=== PATIENT | male | born 1940 | race Caucasian/White ===

== ENCOUNTER 2017-04-09 07:33 | Inpatient (IN) | payer OTHER ==
[~2017-04-09] VITALS: Ht 167.6 cm; Wt 102.1 kg
[~2017-04-09 07:33] MED LIST: BACTRIM DS TAB1 EACH PO; COLCHICINE0.6 M3 PO; KEFLEX500 M1 PO; PREDNISONE10 M2 PO
--- NOTE | 2017-04-09 07:55 | NUR ---
TRIAGE: 77/M PRESENTS WITH C/C OF LOWER ABDOMEN PAIN / WHICH COMES AND GOES. PAIN STARTED LAST NIGHT. DENIES NAUSEA AND VOMTING. DENIES ANY NEW URINARY SYMPTOMS OTHER THAN CHONIC OCCASIONAL INCONTINENCE. DENIES CHEST PAIN AT THIS TIME. LUNG SOUNDS ARE CLEAR THROUGH OUT LUNG LOBES. O2 SATURATION 96% RA. EKG DONE, SINUS TACH 102. PT ARRIVES ALERT AND ORIENTED X 3. AFEBRILE.
[2017-04-09] MEDS ORDERED: MELOXICAM7.5 M1 PO (08:21)
--- NOTE | 2017-04-09 08:26 | ED GI/GU/ABDOMINAL COMPLAINT ---
History of Present Illness General Chief Complaint: Abdominal Pain/Flank Pain Stated Complaint: ABD PAIN SINCE LAST PM Source: patient, family, old records Exam Limitations: no limitations Vital Signs & Intake/Output Vital Signs & Intake/Output Vital Signs Date Time Temp Pulse Resp B/P B/P Pulse O2 O2 Flow FiO2 Mean Ox Delivery Rate 04/10 1507 98.9 84 20 110/60 96 Nasal 2.0L Cannula 04/10 0800 Nasal 2.0L Cannula 04/10 0445 97.8 78 22 130/60 97 Nasal 2.0L Cannula 04/10 0046 98.3 85 20 128/72 95 Nasal 2.0L Cannula 04/10 0000 Nasal 2.0L Cannula 04/09 2318 98.1 92 18 132/72 96 ED Intake and Output 04/10 0000 04/09 1200 Intake Total 375 Output Total 1825 300 Balance -1450 -300 Intake, IV 375 Output, 1700 Gastric Drainage Output, Urine 125 300 Patient 225 lb 225 lb Weight Weight Reported by Patient Reported by Patient Measurement Method Allergies Coded Allergies: NO KNOWN ALLERGIES (02/18/16) Reconcile Medications Meloxicam 7.5 MG TABLET 1 TAB PO DAILY PAIN (Reported) Triage Note: TRIAGE: 77/M PRESENTS WITH C/C OF LOWER ABDOMEN PAIN 10/10 WHICH COMES AND GOES. PAIN STARTED LAST NIGHT. DENIES NAUSEA AND VOMTING. DENIES ANY NEW URINARY SYMPTOMS OTHER THAN CHONIC OCCASIONAL INCONTINENCE. DENIES CHEST PAIN AT THIS TIME. LUNG SOUNDS ARE CLEAR THROUGH OUT LUNG LOBES. O2 SATURATION 96% RA. EKG DONE, SINUS TACH 102. PT ARRIVES ALERT AND ORIENTED X 3. AFEBRILE. Triage Nurses Notes Reviewed? yes Onset: Abrupt Duration: hour(s): Timing: recent history Quality/Severity: sharpness, severe Severity Numbers: 8 Location: generalized abdomen Prior Abdominal Problems: none HPI: 77-year-old male presents emergency department complaining of abdominal pain since last night. Patient states that abdominal pain is worse with movement and was so severe last night that he had to lay down and not move. Patient describes abdominal pain as 8/10 currently, described as sharp intermittent stabbing, initially periumbilical with radiation around generalized abdominal area. Patient has had an appetite, no nausea, vomiting, constipation, diarrhea, hematochezia, melena, chest pain, fevers, chills, dyspnea. 2 weeks ago he had many teeth extracted. He daugter states that he has a very high pain tolerance, so she is concerned. LBM yesterday and normal. (BHAVESH SEO PA-C) Past History Travel History Traveled to [place] past 21 day No Medical History Any Pertinent Medical History? 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 No (BHAVESH SEO PA-C) Review of Systems Review of Systems Constitutional: Reports: no symptoms. EENTM: Reports: see HPI. Respiratory: Reports: no symptoms. Cardiovascular: Reports: no symptoms. GI: Reports: see HPI. Genitourinary: Reports: no symptoms. Musculoskeletal: Reports: no symptoms. Skin: Reports: no symptoms. Neurological/Psychological: Reports: no symptoms. Hematologic/Endocrine: Reports: no symptoms. Immunologic/Allergic: Reports: no symptoms. All Other Systems: Reviewed and Negative (BHAVESH SEO PA-C) Physical Exam Physical Exam Gastrointestinal: SEE BELOW Comments: Well-developed well-nourished person in no acute distress HEENT: HEAD is atraumatic, normocephalic Neck: Supple, normal range of motion without pain or tenderness Back: Nontender, Full range of motion Cardiovascular: Regular rate and rhythms no murmurs rubs or gallops, normal JVP Respiratory: . No respiratory distress. Patient speaking in full complete sentences. Breath sounds clear to auscultation bilaterally: NO W/R/R Abdomen: Soft, tenderness throughout all quadrants, nondistended, no appreciable organomegaly. bowel sounds present. No rebound/guarding, No appreciable enlargement of the abdominal aorta, No ascites. Extremity: No edema, full range of motion of extremities Neuro: Alert oriented x3, motor sensory normal, There were no obvious focal neurologic abnormalities. Skin: No appreciable rash on exposed skin, skin is warm and dry. Psych: Mood and affect is normal, memory and judgment is normal. Core Measures ACS in differential dx? Yes Severe Sepsis Present: No Septic Shock Present: No (GABBI JUAREZ,BHAVESH MARCH) Progress Differential Diagnosis: AMI, appendicitis, biliary colic, bowel obstruction, colon cancer, cholecystitis, diverticulitis Plan of Care: Orders Procedure Date/time Status Discontinue Nursing Interventi 04/10 UNK Active Current Medications Sig/Carolyn Start time Last Medication Dose Stop Time Status Admin Heparin Sodium 5,000 UNIT Q8 04/09 2200 AC 04/10 (Porcine) 2148 Hydromorphone HCl 1 MG Q2-3 HRS NEEDED.. 04/09 1445 AC 04/10 (Dilaudid) 1751 Ondansetron HCl 4 MG Q6P PRN 04/09 1445 AC (Zofran) Potassium Chloride 20 MEQ Q8H 04/09 1330 AC 04/10 (KCl 20MEQ in D5W NS 1948 1000ML) Dextrose/Sodium 1,000 ML Chloride (D5-Normal Saline) Laboratory Tests 04/10/17 0745: Anion Gap 8, Estimated GFR > 60, BUN/Creatinine Ratio 25.5 H, Glucose 133 H, CBC w Diff MAN DIFF ORDERED, RBC 2.73 L, MCV 90.9, MCH 29.5, RDW 16.6 H, MPV 6.9 L, Gran % 86.8 H, Lymphocytes % 6.0 L, Monocytes % 7.1, Eosinophils % 0, Basophils % 0.1, Absolute Granulocytes 12.1 H, Segmented Neutrophils 83 H, Band Neutrophils 7 H, Absolute Lymphocytes 0.8 L, Lymphocytes 6 L, Monocytes 4, Absolute Monocytes 1.0 H, Absolute Eosinophils 0, Absolute Basophils 0, Platelet Estimate VERIFIED BY SMEAR, Normocytic RBCs VERIFIED, Normochromic RBCs VERIFIED, PUBS MCHC 32.5 L The patient was discussed with Dr. Delacruz. 10:32 AM - Spoke with radiologist - reports gallstone ileus, gallstone in distal small bowel causing SBO, fisutula between gallbladder and duodenum. General surgery page is pending. Patient's last meal was yesterday evening. Today he has had sips of water with tylenol PO. Spoke with Dr. Barraza, patient likely needs surgery today, Dr. Barraza states PO tylenol okay. 11:58 - Spoke with surgical PA, Mary Siu, she will evaluate patient at bedside Patient reports improved pain following IV Diluadid, he is in no acute distress at this time. Patient going to OR today. (GABBI JUAREZ,BHAVESH MARCH) Diagnostic Imaging: Viewed by Me: CT Scan. Discussed w/RAD: CT Scan. Radiology Impression: PATIENT: MALVIN JAIN PRESENT AGE: 77 PATIENT ACCOUNT NO: [id number] : 39 LOCATION: [facility] ORDERING PHYSICIAN: BHAVESH SEO PA-C SERVICE DATE: 04/09/17 EXAM TYPE: CAT - CT ABD & PELVIS W IV CONTRAST EXAMINATION: CT ABDOMEN PELVIS. CLINICAL INFORMATION: Rule out appendicitis, obstruction. Abdominal pain. COMPARISON: None available at time of dictation. TECHNIQUE: Computer tomography of the abdomen and pelvis was performed following the intravenous administration of 95 mL of Optiray 320. FINDINGS: The lung bases are clear. The heart appears normal in size. There are dense coronary artery calcifications. There is no pericardial effusion. There is evidence of small bowel obstruction. The stomach is markedly dilated as is the majority of the small bowel. There is a 2.9 x 2.9 cm peripherally calcified structure within the distal small bowel seen best on axial image #71/96 and coronal image #64/103. This appears to represent the point of the small bowel obstruction. There is a fistulous connection between a markedly abnormal gallbladder identified best on image #52/103 and the second portion of the duodenum. The gallbladder wall is markedly thickened and there is pericholecystic inflammatory change and gas. This constellation of findings is consistent with a gallstone ileus. The liver is normal in size. There is no intrahepatic biliary ductal dilation. The pancreas is somewhat atrophic. There is no focal pancreatic lesion identified. No pancreatic ductal dilation. The spleen is normal in size. The adrenal glands are grossly normal. Kidneys are somewhat atrophic bilaterally. There are multiple cortical defects within both kidneys. There are several low-attenuation lesions scattered throughout the left kidney, the largest measuring 1.9 cm. This likely represents a cyst. The subcentimeter lesions are too small for definitive characterization. No hydronephrosis. Urinary bladder is grossly normal. The prostate gland is normal in size. There are atherosclerotic calcifications throughout the visualized aorta. No aortic aneurysm. There is a left hip prosthesis. There are severe degenerative changes throughout the entire lumbar spine characterized by intervertebral disc space narrowing, endplate sclerosis, osteophytosis and vacuum disc phenomenon. There is severe facet arthropathy throughout the lower lumbar spine. The left psoas muscle is markedly atrophic. IMPRESSION: Findings are consistent with gallstone ileus. There is small bowel obstruction resulting from impaction of a large gallstone within the distal small bowel. 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 This critical result was discussed with JOANNE Flores at 10:35 AM on 04/09/2017 and it was ascertained that the content and urgency of the report was understood at the time of direct communication. DICTATED BY: TUCKER MCKENNA MD DATE/TIME DICTATED:04/09/17953 COUNTERSINKER BALANCE SCREW HOLE:JULIANNE DATE/TIME TRANSCRIBED:04/09/17953 CONFIDENTIAL, DO NOT COPY WITHOUT APPROPRIATE AUTHORIZATION. <Electronically signed in Other Vendor System> SIGNED BY: TUCKER MCKENNA MD 04/09/17 1039 Initial ED EKG: sinus tachycardia @100bpm, no ST segment depression or elevation Prior EKG: changed (02/18/16 sinus rhythm, 1AV block) (GABBI JUAREZ,BHAVESH MARCH) Departure Departure Disposition: STILL A PATIENT Condition: Stable Clinical Impression Primary Impression: Gallstone ileus Secondary Impressions: Abdominal pain, Leukocytosis, Small bowel obstruction Referrals: PATIENT HAS NO PRIMARY CARE DR (PCP/Family) Departure Forms: Customer Survey General Discharge Information Admission Note Spoke With: JOSE JONES,BOYD Martinez Documentation of Exam: Documentation of any treatments & extenuating circumstances including Concerns Regarding Discharge (functional status, medication knowledge or non-compliance, living conditions, etc.) that warrant an admission rather than observation: [ Patient with gallstone ileus and SBO, requiring surgery today, post operative monitoring, repeat labs, IV pain control, premature discharge would be medically harmful] (GABBI JUAREZ,BHAVESH MARCH) PA/BUSINESS WRITER Co-Sign Statement Statement: ED Attending supervision documentation- x I saw and evaluated the patient. I have also reviewed all the pertinent lab results and diagnostic results. I agree with the findings and the plan of care as documented in the PA's/BUSINESS WRITER's documentation. [] I have reviewed the ED Record and agree with the PA's/BUSINESS WRITER's documentation. [] Additions or exceptions (if any) to the PAs/BUSINESS WRITER's note and plan are summarized below: [] (KAY JONES,CHANDRA) harmful]
--- NOTE | 2017-04-09 08:36 | NUR ---
IV #20G INSERTED ON LEFT AC. LABS DRAWN AND SENT.
[2017-04-09 08:40] LABS: ABSOLUTE BASOPHIL COUNT 0 /CUMM (0.0-0.2); ABSOLUTE EOSINOPHIL COUNT 0 /CUMM (0.0-0.7); ABSOLUTE GRANULOCYTE CT 17.2 /CUMM (1.4-6.5); ABSOLUTE LYMPH COUNT 0.5 /CUMM (1.2-3.4); ABSOLUTE MONOCYTE COUNT 0.7 /CUMM (0.10-0.60); BASOPHIL % 0.1 % (0.0-2.0); EOSINOPHIL % 0 % (0-5); GRANULOCYTE % 93.5 % (42.2-75.2); MEAN CORPUSCULAR HGB 29.6 PG (27.0-31.0); MEAN CORPUSCULAR HGB CONC 32.5 G/DL (33.0-37.0); MEAN CORPUSCULAR VOLUME 91.1 FL (80.0-94.0); MEAN PLATELET VOLUME 6.1 FL (7.4-10.4); PLATELET COUNT 438 /CUMM (130-400); RBC DISTRIBUTION WIDTH 16.4 % (11.5-14.5); WHITE BLOOD CELL COUNT 18.4 /CUMM (4.8-10.8)
--- NOTE | 2017-04-09 09:12 | NUR ---
PT TAKEN TO CT SCAN VIA STRETCHER.
--- NOTE | 2017-04-09 09:39 | NUR ---
PT BACK FROM CT SCAN. TYLENOL PO GIVEN ORDERED.
--- NOTE | 2017-04-09 10:34 | NUR ---
PT UNABLE TO VOID FOR SPECIMEN. ST. DONE ORDERED. 300ML OF CONCENTRATED URINE OUTPUT. SPECIMENT OBTAINED AND SENT. PT'S HOME BRIEF WET FROM INCONTINENCY. PERICARE PROVIDED. REPOSITIONED FOR COMFORT.
--- NOTE | 2017-04-09 10:37 | NUR ---
PA IN ROOM UPDATING TEST RESULTS.
--- NOTE | 2017-04-09 10:39 | CT SCAN REPORT ---
EXAMINATION: CT ABDOMEN PELVIS. CLINICAL INFORMATION: Rule out appendicitis, obstruction. Abdominal pain. COMPARISON: None available at time of dictation. TECHNIQUE: Computer tomography of the abdomen and pelvis was performed following the intravenous administration of 95 mL of Optiray 320. FINDINGS: The lung bases are clear. The heart appears normal in size. There are dense coronary artery calcifications. There is no pericardial effusion. There is evidence of small bowel obstruction. The stomach is markedly dilated as is the majority of the small bowel. There is a 2.9 x 2.9 cm peripherally calcified structure within the distal small bowel seen best on axial image #71/96 and coronal image #64/103. This appears to represent the point of the small bowel obstruction. There is a fistulous connection between a markedly abnormal gallbladder identified best on image #52/103 and the second portion of the duodenum. The gallbladder wall is markedly thickened and there is pericholecystic inflammatory change and gas. This constellation of findings is consistent with a gallstone ileus. The liver is normal in size. There is no intrahepatic biliary ductal dilation. The pancreas is somewhat atrophic. There is no focal pancreatic lesion identified. No pancreatic ductal dilation. The spleen is normal in size. The adrenal glands are grossly normal. Kidneys are somewhat atrophic bilaterally. There are multiple cortical defects within both kidneys. There are several low-attenuation lesions scattered throughout the left kidney, the largest measuring 1.9 cm. This likely represents a cyst. The subcentimeter lesions are too small for definitive characterization. No hydronephrosis. Urinary bladder is grossly normal. The prostate gland is normal in size. There are atherosclerotic calcifications throughout the visualized aorta. No aortic aneurysm. There is a left hip prosthesis. There are severe degenerative changes throughout the entire lumbar spine characterized by intervertebral disc space narrowing, endplate sclerosis, osteophytosis and vacuum disc phenomenon. There is severe facet arthropathy throughout the lower lumbar spine. The left psoas muscle is markedly atrophic. IMPRESSION: Findings are consistent with gallstone ileus. There is small bowel obstruction resulting from impaction of a large gallstone within the distal small bowel. 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 This critical result was discussed with JOANNE Flores at 10:35 AM on 04/09/2017 and it was ascertained that the content and urgency of the report was understood at the time of direct communication.
--- NOTE | 2017-04-09 10:58 | NUR ---
PT C/O ABDOMEN PAIN 04/24. MEDICATED WITH DILAUDID IVP ORDERED. VITAL SIGNS STABLE PRIOR TO MED ADMINISTRATION.
--- NOTE | 2017-04-09 11:50 | NUR ---
NORMAL SALINE BOLUS INFUSING PER ORDER AT THIS TIME
--- NOTE | 2017-04-09 12:04 | NUR ---
DR. GARCIA IN ROOM SPEAKING TO THE PT.
--- NOTE | 2017-04-09 12:19 | NUR ---
SURGICAL PA AT BEDSIDE TO PLACE NG TUBE AT THIS TIME
--- NOTE | 2017-04-09 12:38 | NUR ---
OUTPUT APPROX 700CC BROWN LIQUID FROM NG TUBE, AWAIITNG XRAY FOR PLACEMENT CONFIRMATION AND THEN PER SURGICAL PA PT TO BE HOOKED UP TO LOW CONTINUOUS SUCTION.
--- NOTE | 2017-04-09 12:42 | NUR ---
X RAY AT BEDSIDE.
--- NOTE | 2017-04-09 13:00 | RADIOLOGY REPORT ---
EXAMINATION: XR PORTABLE CHEST CLINICAL INFORMATION: Nausea and vomiting. NG tube placement. COMPARISON: 04/15/2011 TECHNIQUE: Portable frontal view of the chest was obtained. FINDINGS: The enteric tube extends into the stomach. The side port is likely in the region of the gastroesophageal junction. The right costophrenic angle is not fully included on this study. Lung volumes are low. No consolidation, edema, or effusion. No pneumothorax. The cardiomediastinal silhouette is unchanged, with a tortuous aorta. IMPRESSION: Enteric tube extends into the stomach with the side-port likely in the region of the gastroesophageal junction. Consider advancement.
--- NOTE | 2017-04-09 13:02 | NUR ---
EMPTIED 1000ML DARK BROWN NG TUBE DRAINAGE. PT REPORTS "PAIN A LOT BETTER THAN BEFORE, I CAN WALK NOW." VITAL SIGNS STABLE.
--- NOTE | 2017-04-09 13:09 | NUR ---
SURGICAL PA UPDATED X RAY RESULTS. PA TO COME DOWN TO ADVANCE THE NG TUBE.
--- NOTE | 2017-04-09 13:22 | NUR ---
SURGICAL PA IN ROOM.
--- NOTE | 2017-04-09 14:25 | Admission Core Measures ---
Admission Lab Results I reviewed the following labs: Laboratory Tests 04/09 1030 Urines Urinalysis MOD H Urine Color (YEL,AMB,STR) YEL Urine Clarity (CLEAR) CLDY H Urine pH (5.0 - 8.0) 6.0 Ur Specific [place] (1.001 - 1.035) 1.020 Urine Protein (NEG,<30 MG/DL) 30 H Urine Ketones (NEG) TRACE H Urine Nitrite (NEG) NEG Urine Bilirubin (NEG) NEG@ICTO Urine Urobilinogen (0.1 - 1.0 EU/dl) 1.0 Ur Leukocyte Esterase (NEG) NEG Ur Microscopic SEDIMENT EXAMINED Urine RBC (0 - 5 /HPF) 1-3 Urine WBC (0 - 2 /HPF) 3-5 H Ur Epithelial Cells (NONE,FEW) RARE Urine Bacteria (NEG/NONE) RARE H Hyaline Casts (0/LPF) 5-10 H Granular Casts (NONE /LPF) RARE H Urine Mucus (FEW,NONE) MOD H Urine Hemoglobin (NEG) NEG Urine Glucose (N MG/DL) NEG 04/09 0830 Chemistry Sodium (137 - 145 mmol/L) 140 Potassium (3.5 - 5.1 mmol/L) 4.6 Chloride (98 - 107 mmol/L) 99 Carbon Dioxide (22 - 30 mmol/L) 27 Anion Gap (5 - 16) 13 BUN (9 - 20 mg/dL) 26 H Creatinine (0.7 - 1.2 mg/dL) 1.2 Estimated GFR (>60 ml/min) 59 L BUN/Creatinine Ratio (7 - 25 %) 21.7 Glucose (65 - 99 mg/dL) 206 H Calcium (8.4 - 10.2 mg/dL) 10.5 H Total Bilirubin (0.2 - 1.3 mg/dL) 0.6 AST (17 - 59 U/L) 17 ALT (21 - 72 U/L) 23 Alkaline Phosphatase (< 127 U/L) 74 Troponin I (<0.11 ng/ml) < 0.01 Total Protein (6.3 - 8.2 g/dL) 6.9 Albumin (3.5 - 5.0 g/dL) 4.0 Globulin (1.9 - 4.2 gm/dL) 2.9 Albumin/Globulin Ratio (1.1 - 2.2 %) 1.4 Lipase (23 - 300 U/L) 66 Hematology CBC w Diff MAN DIFF ORDERED WBC (4.8 - 10.8 /CUMM) 18.4 H RBC (4.70 - 6.10 /CUMM) 3.30 L Hgb (14.0 - 18.0 G/DL) 9.8 L Hct (42 - 52 %) 30.0 L MCV (80.0 - 94.0 FL) 91.1 MCH (27.0 - 31.0 PG) 29.6 RDW (11.5 - 14.5 %) 16.4 H Plt Count (130 - 400 /CUMM) 438 H MPV (7.4 - 10.4 FL) 6.1 L Gran % (42.2 - 75.2 %) 93.5 H Lymphocytes % (20.5 - 51.1 %) 2.5 L Monocytes % (1.7 - 9.3 %) 3.9 Eosinophils % (0 - 5 %) 0 Basophils % (0.0 - 2.0 %) 0.1 Absolute Granulocytes (1.4 - 6.5 /CUMM) 17.2 H Segmented Neutrophils (42.2 - 75.2 %) 88 H Band Neutrophils (0.0 - 5.0 %) 6 H Absolute Lymphocytes (1.2 - 3.4 /CUMM) 0.5 L Lymphocytes (20.5 - 51.1 %) 1 L Monocytes (1.7 - 9.3 %) 5 Absolute Monocytes (0.10 - 0.60 /CUMM) 0.7 H Absolute Eosinophils (0.0 - 0.7 /CUMM) 0 Absolute Basophils (0.0 - 0.2 /CUMM) 0 Platelet Estimate (ADEQUATE) VERIFIED BY SMEAR Normocytic RBCs VERIFIED Normochromic RBCs VERIFIED PUBS MCHC (33.0 - 37.0 G/DL) 32.5 L Admission Meds I reviewed the following Meds: Current Medications Sig/Carolyn Start time Last Medication Dose Stop Time Status Admin Potassium Chloride 20 MEQ Q8H 04/09 1330 AC 04/09 (KCl 20MEQ in D5W NS 1416 1000ML) Dextrose/Sodium 1,000 ML Chloride (D5-Normal Saline) Acute Coronary Syndrome Inclusion Criteria ACS Diagnosis No Inpatient Core Measures LDL Reminder: If No, please order W/I first 24hr of stay Congestive Heart Failure Inclusion Criteria CHF Diagnosis No Cerebrovascular accident Inclusion Criteria CVA/TIA Diagnosis No Inpatient Core Measures Bedside Swallow Eval Reminder: If BSE failed, place ST order Antithrombotic Reminder: Order Antithrombotic Medication by end of day 2 Antithrombotic Reminder: Document Reason Antithrombotic Not ordered by end of day 2 AFIB/Flutter Reminder: If Present, add to problem list AFIB/Flutter Reminder: Order Anticoag Medication for pts with AFIB/Flutter Atherosclerosis Reminder: If Present, add to problem list LDL Reminder: If No, please order W/I first 24hr of stay PT Order Reminder: If No, please order Venous thromboembolism Inpatient Core Measures VTE Risk Factors: Surgery No [facility] VTE prophylaxis d/t No contraindications No VTE Pharm Prophylaxis d/t No contraindications Inclusion Criteria - Per Current guidelines, there needs to be overlap - treatment for the first 5 days of Warfarin therapy. - Parenteral Anticoagulation (IV or SC) needs to be - given along with Warfarin therapy. VTE Diagnosis No VTE Type NONE VTE Confirmed by (Test) NONE Problem List As ranked by this Provider includes Assessment & Plan 1. Gallstone ileus 2. Small bowel obstruction HOME MEDS Home Med List Meloxicam 7.5 MG TABLET 1 TAB PO DAILY PAIN (Reported)
--- NOTE | 2017-04-09 14:28 | NUR ---
[facility] CATH DONE PER SURGICAL PA'S VERBAL ORDER. INSERTED 18 FFR. 100ML URINE OUT PUT. PT TOLERATED WELL WITHOUT ANY COMPLAINTS. IV 20 MEQ KCL INFUSING AT 150/HR ORDERED.
--- NOTE | 2017-04-09 14:41 | History & Physical Pre-Op ---
See Addendum General Information and HPI History of Present Illness: 77M presents to ED complaining of abdominal pain that began last night around 5 PM. He describes the pain as consistent very sharp and intense generalized abdominal pain not localized to either side. She denied nausea or vomiting with this pain. He's never had pain like this in the past. She has no history of abdominal surgeries or gastrointestinal disorders. He denies fevers and chills and has no chest pain or shortness of breath. At the time of this interview he is feeling better though has had some pain medication. 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 Relation not specified for: FHx: colon cancer Psychosocial History Where Do You Live? Home (lives alone) Who Do You Live With? self Services at Home None Smoking Status: Never Smoked ETOH Use: denies use Illicit Drug Use: denies illicit drug use Employment History Employment: Retired Review of Systems Review of Systems: see HPI Exam & Diagnostic Data Last 24 Hrs of Vital Signs/I&O Vital Signs Date Time Temp Pulse Resp B/P B/P Pulse O2 O2 Flow FiO2 Mean Ox Delivery Rate 04/09 1417 97.6 105 18 117/68 995 Room Air 04/09 1303 97.7 101 18 117/68 100 Room Air 04/09 1057 97.7 101 18 140/74 94 Room Air 04/09 0748 98.7 109 18 132/66 96 Room Air Intake & Output 04/09 1600 04/09 0800 04/09 0000 Intake Total Output Total 2000 Balance -2000 Output, 1700 Gastric Drainage Output, Urine 300 Patient 225 lb Weight Weight Reported by Patient Measurement Method Physical Exam: GEN: NAD CARD: S1S2 RRR PULM: CTAB ABD: soft, mildly tender to palpation right side, NG tube in place with feculent brown material in container EXT: calves soft nt Last 24 Hrs of Labs/Rudolph: Laboratory Tests 04/09/17 1030: Urinalysis MOD H, Urine Color YEL, Urine Clarity CLDY H, Urine pH 6.0, Ur Specific Antelope 1.020, Urine Protein 30 H, Urine Ketones TRACE H, Urine Nitrite NEG, Urine Bilirubin NEG@ICTO, Urine Urobilinogen 1.0, Ur Leukocyte Esterase NEG, Ur Microscopic SEDIMENT EXAMINED, Urine RBC 1-3, Urine WBC 3-5 H, Ur Epithelial Cells RARE, Urine Bacteria RARE H, Hyaline Casts 5-10 H, Granular Casts RARE H, Urine Mucus MOD H, Urine Hemoglobin NEG, Urine Glucose NEG 04/09/17 0830: Anion Gap 13, Estimated GFR 59 L, BUN/Creatinine Ratio 21.7, Glucose 206 H, Calcium 10.5 H, Total Bilirubin 0.6, AST 17, ALT 23, Alkaline Phosphatase 74, Troponin I < 0.01, Total Protein 6.9, Albumin 4.0, Globulin 2.9, Albumin/ Globulin Ratio 1.4, Lipase 66, CBC w Diff MAN DIFF ORDERED, RBC 3.30 L, MCV 91.1, MCH 29.6, RDW 16.4 H, MPV 6.1 L, Gran % 93.5 H, Lymphocytes % 2.5 L, Monocytes % 3.9, Eosinophils % 0, Basophils % 0.1, Absolute Granulocytes 17.2 H , Segmented Neutrophils 88 H, Band Neutrophils 6 H, Absolute Lymphocytes 0.5 L, Lymphocytes 1 L, Monocytes 5, Absolute Monocytes 0.7 H, Absolute Eosinophils 0, Absolute Basophils 0, Platelet Estimate VERIFIED BY SMEAR, Normocytic RBCs VERIFIED, Normochromic RBCs VERIFIED, PUBS MCHC 32.5 L Diagnostic Data Other Results CT a/p: Findings are consistent with gallstone ileus. There is small bowel obstruction resulting from impaction of a large gallstone within the distal small bowel. 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 Assessment/Plan Assessment/Plan: A: 77M with SBO secondary to gallstone ileus, with significant leukocytosis of 19K and greater than 2 L of feculent material out via NG tube initial insertion, mildly tachycardic, elevated BUN/creatinine due to dehydration. P: -Case discussed with Dr. Barraza. Patient to be brought to the OR today. NPO. IVF. IV meds. NGT to lcws. strict I&Os. palomino catheter. DVT ppx. preop abx. As Ranked By This Provider Problem List: 1. Gallstone ileus 2. Small bowel obstruction
--- NOTE | 2017-04-09 15:22 | NUR ---
ROOM 219 IS BED ASSIGNMENT
--- NOTE | 2017-04-09 17:48 | Operative Report ---
Operative/Inv Procedure Report Surgery Date: 04/09/17 Name of Procedure: Removal of foreign body small bowel Pre-Operative Diagnosis: Gallstone ileus Post-Operative Diagnosis: Same Estimated Blood Loss: scant Surgeon/Detective [employer] Section: JOSE JONES,BOYD Martinez/Kimberly Lane APRN Anesthesia: general endotracheal tube Specimens: 3 cm gallstone Operative Indication: See preoperative H&P Operative/Procedure Note Note: After consent he is brought to the operating room and laid supine. Gen. anesthesia was obtained and his abdomen was prepped and draped. An infraumbilical midline incision was made sharply. Came down to the subcutaneous tissues tissues with cautery and incised the fascia with cautery. The peritoneum was entered sharply. The wound was fully mobilized. We ran the small bowel distally through the small laparotomy incision. There were's copious ileum which was completely decompressed. There were massively dilated proximal small bowel loops. On the preop CT he had the stone in the pelvis and a small bowel loop so I inserted my hand and was able to palpate it and bring it up into the wound. This was the obvious obstructing source. Blue towels were placed around the small bowel and a bowel clamp was placed proximally to avoid excessive enteric spillage. A longitudinal incision was made through the bowel overlying the stone. His was performed with cautery. The stone was extracted and passed off the field. I closed the enterotomy with interrupted 3-0 silk sutures and a transverse stricturoplasty fashion. This was done with interrupted Lembert sutures. The bowel was irrigated with saline and then replaced in the peritoneal cavity. Prior to doing so we milked some succus through the site. There is no obstruction. There is no leakage through the suture sites. The fascia was closed with running 0 Maxon suture. Skin was closed with sahw. Sterile dressing was applied. Sponge and needle counts are correct
[2017-04-09 19:05] VITALS: BP 132/80
--- NOTE | 2017-04-09 19:05 | NUR ---
ADMISSION NOTE: PT ARRIVED TO FLOOR IN STRETCHER WITH DISTRIBUTION, DAUGHTER AT BEDSIDE, A/OX3, 2L NC, NG TUBE INPLACE DRAINING SCANT AMT OF BROWNISH LIQUID, IV INTACT, IVF RUNNING PER MD ORDER, ABD DRESSING TO MID ABD WITH SCANT BLOODY DRAINAGE APPARNT, 0/10 PAIN REPORTED BY PT, ORIENTED TO ROOM, REPORT GIVEN TO NEXT NURSE.
--- NOTE | 2017-04-09 20:16 | PN- General Surgery ---
Subjective Subjective: POSTOP CHECK SLEEPY. PAIN CONTROLLED. NO FLATUS/BM/OOB. NGT CLOGGED- UNABLE TO FLUSH Objective Vital Signs and I&Os Vital Signs Date Time Temp Pulse Resp B/P B/P Pulse O2 O2 Flow FiO2 Mean Ox Delivery Rate 04/09 1905 97.6 94 18 132/80 91 Room Air 04/09 1417 97.6 105 18 117/68 995 Room Air 04/09 1303 97.7 101 18 117/68 100 Room Air 04/09 1057 97.7 101 18 140/74 94 Room Air 04/09 0748 98.7 109 18 132/66 96 Room Air Intake & Output 04/09 1600 04/09 0800 04/09 0000 04/08 1600 04/08 0800 04/08 0000 Intake Total Output Total 1999 Balance -2000 Output, 1700 Gastric Drainage Output, Urine 300 Patient 225 lb Weight Weight Reported by Patient Measurement Method Physical Exam: GEN: NAD CARD: S1S2 RRR PULM: CTAB ABD: softly distended, slightly ttp, incision w CDI dressing, +bs with ngt clamped EXT: calves soft nt, ALPS on bl NGT: clogged. unable to flush. gastric contents going through blue port- 150 out. on low wall suction Assessment/Plan Assessment/Plan A: 77m pod#0 sp exlap/small bowel gallstone removal, no bowel fxn, stable postoperatively. P: - DVT ppx - GI ppx -palomino for postop period - npo, ngt, ivf. NGT flushes by rn qshift - prn pain meds - OOB, ambulate - am labs, check serum glucose- elevated on admission labs, no hx DM - will dw attending Core Measures/Miscellaneous Venous Thromboembolism VTE Risk Factors: Surgery VTE Contraindications: No Contraindications VTE Diagnosis: No VTE Type: NONE VTE Confirmed by (Test): NONE Beta Jayne Is Beta Jayne a Home Med? No Antibiotics Is Patient on Antibiotics? No
[2017-04-09 21:11] VITALS: BP 128/68
[2017-04-09 23:18] VITALS: BP 132/72
[2017-04-10 00:46] VITALS: BP 128/72
[2017-04-10 04:45] VITALS: BP 130/60
--- NOTE | 2017-04-10 06:48 | PN- Student ---
Subjective Subjective: POST-OP DAY #1 Pt is a 77 y/o male who is POD #1 of an exploratory laparotomy to remove a gallstone ileus causing a small bowel obstruction on 04/09, who is doing well with no complaints of pain. Pt states that he feels much better than yesterday. He denies any N/V or dizziness. -ambulation. -flatus. ROS: Neuro: Denies any headaches or changes in vision. Respiratory: Denies any SOB or difficulty breathing. Cardiac: Denies any chest pain or palpitations. GI: Denies any pain around incision site, cramping, or bloating. : Denies any burning, itching, or iritation with voiding through palomino catheter. MSK: Denies any joint pain or back pain. Objective Objective: Vital Signs Date Time Temp Pulse Resp B/P B/P Pulse O2 O2 Flow FiO2 Mean Ox Delivery Rate 04/10 0445 97.8 78 22 130/60 97 Nasal 2.0L Cannula 04/10 0046 98.3 85 20 128/72 95 Nasal 2.0L Cannula 04/09 2318 98.1 92 18 132/72 96 04/09 2111 97.7 88 18 128/68 97 04/09 1905 96 Nasal 2.0L Cannula 04/09 1905 97.6 94 18 132/80 91 Room Air 04/09 1417 97.6 105 18 117/68 995 Room Air 04/09 1303 97.7 101 18 117/68 100 Room Air 04/09 1057 97.7 101 18 140/74 94 Room Air 04/09 0748 98.7 109 18 132/66 96 Room Air General: Alert & oriented x3. Appropriate mood & affect. Respiratory: CABL. No wheezes, rhales, or ronchi. No accessory muscle use. Cardiac: S1S2. Normal rate, regular rhythm. No murmurs, rubs, or gallops. No signs of edema. GI: Abdomen is soft, nontender, nondistended. + BS in all 4 quadrants. Bandage has some minor sanguinous staining around incision, but is dry and intact. No erythema surrounding. MSK: Calves are soft, nontender. Stocking compression devices applied. Assessment/Plan Assessment: This is a 77 y/o male who is POD #1 of an exploratory laparotomy to relieve a small bowel obstruction caused by a gallstone ileus, who is doing well with no complaints of pain, and significant relief from previous day. Plan: - Discuss possible removal of NG tube. - Remove palomino catheter. - Heparin SC & SCD's DVT prophylaxis. - Advance to clears diet as tolerated. - Promote out of bed ambulation. - Will discuss w/ Dr. Barraza.
--- NOTE | 2017-04-10 07:50 | PN- General Surgery ---
Subjective Subjective: PT. REPORTS NO PAIN. DENIED NAUSEA OR EMESIS. NOT PASSING FLATUS Objective Vital Signs and I&Os Vital Signs Date Time Temp Pulse Resp B/P B/P Pulse O2 O2 Flow FiO2 Mean Ox Delivery Rate 04/10 0445 97.8 78 22 130/60 97 Nasal 2.0L Cannula 04/10 0046 98.3 85 20 128/72 95 Nasal 2.0L Cannula 04/09 2318 98.1 92 18 132/72 96 04/09 2111 97.7 88 18 128/68 97 04/09 1905 96 Nasal 2.0L Cannula 04/09 190 97.6 94 18 132/80 91 Room Air 04/09 1417 97.6 105 18 117/68 995 Room Air 04/09 1303 97.7 101 18 117/68 100 Room Air 04/09 1057 97.7 101 18 140/74 94 Room Air 04/09 0748 98.7 109 18 132/66 96 Room Air Intake & Output 04/10 0800 04/10 0000 04/09 1600 04/09 0800 04/09 0000 04/08 1600 Intake Total Output Total 659 300 2705 Balance -150 -125 -2000 Output, 1700 Gastric Drainage Output, Urine 150 125 300 Patient 225 lb 225 lb Weight Weight Reported by Patient Reported by Patient Measurement Method ALERT. ORIENTED , APPROPRIATE COR REGULAR lUNGS ESSENTIALLY CLEAR ABDOMEN , SOFR, ESSENTIALLY NOT DISTENDED, NOT TENDER, INCISION IS CLEAN NGT APPEARS CLOGGED UPON ATTEMPTS OF FLUSHING VIA LARGER PORT, HOWEVER OURPUT IN CANNISTER RECORDED 250 CC OF THICK OUTPUT OVER NIGHT VIA BLUE PORT MCKEON TO GRAVITY WITH MARGINAL OUTPUT Assessment/Plan Assessment/Plan GALLSTONE ILEU, S/P STONE REMOVAL POST OP DAY 1 STABLE HEMODYNAMICS URINARY OUTPUT BORDERLINE, MOINITOE. LIKELY D/C MCKEON, KEEP IVF ONCE BETTER OUTPUT. ABDOMINAL EXAM IS BENIGN EXPECTED. NGT SEEMS TO BE CLOGGED DESPITE FLUSHES.HE IS NOT PASSING GAS BUT HE IS NOT DISTENDED. WOULD FAVOR REMOVAL OF NGT AND REPLACE IF BECOMES DISTENDED. CONSIDER CLEAR DIET TODAY. LABS PENDING, FOLLOW REAULTS. PT. IS COMFORTABLE, DID NOT REQUIRE NARCOTICS OVER NIGHT. WILL REVIEW ABOVE WITH SURGEON Core Measures/Miscellaneous Venous Thromboembolism VTE Risk Factors: Surgery VTE Contraindications: No Contraindications VTE Diagnosis: No VTE Type: NONE VTE Confirmed by (Test): NONE Beta Jayne Is Beta Jayne a Home Med? No Antibiotics Is Patient on Antibiotics? No
[2017-04-10 09:29] LABS: ABSOLUTE BASOPHIL COUNT 0 /CUMM (0.0-0.2); ABSOLUTE EOSINOPHIL COUNT 0 /CUMM (0.0-0.7); ABSOLUTE GRANULOCYTE CT 12.1 /CUMM (1.4-6.5); ABSOLUTE LYMPH COUNT 0.8 /CUMM (1.2-3.4); BASOPHIL % 0.1 % (0.0-2.0); EOSINOPHIL % 0 % (0-5); MEAN CORPUSCULAR HGB 29.5 PG (27.0-31.0); MEAN CORPUSCULAR HGB CONC 32.5 G/DL (33.0-37.0); MEAN CORPUSCULAR VOLUME 90.9 FL (80.0-94.0); MEAN PLATELET VOLUME 6.9 FL (7.4-10.4); PLATELET COUNT 339 /CUMM (130-400); RBC DISTRIBUTION WIDTH 16.6 % (11.5-14.5); RED BLOOD CELL CT 2.73 /CUMM (4.70-6.10)
[2017-04-10 15:07] VITALS: BP 110/60
[2017-04-10 22:36] VITALS: BP 140/82
--- NOTE | 2017-04-10 23:16 | NUR ---
ALERT AND ORIENTED X 3. ON 2L O2 VIA NC. DENIES SHORTNESS OF BREATH VITAL SIGNS STABLE. DENIES CHEST PAIN. + PULSES. DENIES NUMBNESS/TINGLING DSG TO ABD IS C/D/I. ASSIST X 1. HYPOACTIVE BOWEL SOUNDS NO DISCOMFORT/DISTRESS AT THIS TIME. PATIENT RESTING SAFETY MAINTAINED
[2017-04-11 06:50] VITALS: BP 128/82
--- NOTE | 2017-04-11 07:25 | PN- Student ---
See Addendum NOE KILPATRICK 04/11/17 0713: Subjective Subjective: Pt is a 77 y/o male who is POD #2 of an exploratory laparotomy & enterotomy of gallstone ileus on 04/09 who complains of mild pain of a 2-3/10 around his umbilical region and around his incision site with movement. He states that it is intermittent, and is exacerbated with movement & pressure. Voiding w/o difficulty. +flatus. +ambulation. Remains NPO. Denies any N/V/D. ROS Neuro: Denies any headaches. Respiratory: Denies any SOB or difficulty breathing. Cardiac: Denies any CP or palpitations. GI: Complains of intermittent pain around incision site that worsens with movement. : Denies any pain, burning, or difficulty voiding in urinal. Objective Objective: General: Alert & oriented x3. Appropriate mood & affect. Respiratory: CABL. No wheezes, rhales, or ronchi. No accessory muscle use. Cardiac: S1S2. Regular rate, normal rhythm. No murmurs, rubs, or gallops. No signs of edema. GI: Abdomen is soft. Mildly tender in umbilical region & around incision site. Nondistended. Bandage over incision is c/d/i w/ minimal sanguinous staining over center of bandage from incision. No surrounding erythema. + BS all 4 quadrants. MSK: Calf soft, nontender BL. Plantarflexion & dorsiflexion strength 5/5 BL. Stocking compression devices applied. Assessment/Plan Assessment: This is a 77 y/o male who is POD #2 of an exploratory laparotomy w/ enterotomy of gallstone ileus on 04/09 who is doing well with some mild complaints of pain in umbilical region that is being managed. Plan: - Advance diet to clears as tolerated. - Continue pain management regimen. - Promote out of bed ambulation to assist in bowel movement. - Heparin SC & SCD's DVT prophylaxis. - Promote use of incentive spirometer. - Will discuss w/ attending. APRIL HAHN 04/11/17 1198: Assessment/Plan Plan: agree with above PA-S note try clears today PT eval (ambulates with rolling walker at baseline) f/u labs will d/w
[2017-04-11 08:03] LABS: HEMATOCRIT 24.8 % (42-52)
[2017-04-11 08:04] LABS: GRANULOCYTE % 86.8 % (42.2-75.2)
[2017-04-11 08:56] LABS: ABSOLUTE BASOPHIL COUNT 0 /CUMM (0.0-0.2); ABSOLUTE EOSINOPHIL COUNT 0.1 /CUMM (0.0-0.7); ABSOLUTE GRANULOCYTE CT 6.6 /CUMM (1.4-6.5); ABSOLUTE LYMPH COUNT 0.8 /CUMM (1.2-3.4); ABSOLUTE MONOCYTE COUNT 0.7 /CUMM (0.10-0.60); BASOPHIL % 0.2 % (0.0-2.0); GRANULOCYTE % 80.7 % (42.2-75.2); HEMATOCRIT 24.1 % (42-52); MEAN CORPUSCULAR HGB CONC 31.9 G/DL (33.0-37.0); MEAN CORPUSCULAR VOLUME 90.7 FL (80.0-94.0); MEAN PLATELET VOLUME 6.4 FL (7.4-10.4); PLATELET COUNT 293 /CUMM (130-400); RBC DISTRIBUTION WIDTH 16.5 % (11.5-14.5); RED BLOOD CELL CT 2.65 /CUMM (4.70-6.10); WHITE BLOOD CELL COUNT 8.1 /CUMM (4.8-10.8)
[2017-04-11 15:48] VITALS: BP 128/74
[2017-04-11 22:01] VITALS: BP 140/90
[2017-04-12 06:46] VITALS: BP 140/84
[2017-04-12 08:27] LABS: ABSOLUTE BASOPHIL COUNT 0 /CUMM (0.0-0.2); ABSOLUTE EOSINOPHIL COUNT 0.2 /CUMM (0.0-0.7); ABSOLUTE GRANULOCYTE CT 6.2 /CUMM (1.4-6.5); ABSOLUTE LYMPH COUNT 0.9 /CUMM (1.2-3.4); ABSOLUTE MONOCYTE COUNT 0.7 /CUMM (0.10-0.60); BASOPHIL % 0 % (0.0-2.0); EOSINOPHIL % 2.8 % (0-5); GRANULOCYTE % 76.7 % (42.2-75.2); HEMATOCRIT 24.3 % (42-52); MEAN CORPUSCULAR HGB 29.7 PG (27.0-31.0); MEAN CORPUSCULAR HGB CONC 32.4 G/DL (33.0-37.0); MEAN CORPUSCULAR VOLUME 91.6 FL (80.0-94.0); MEAN PLATELET VOLUME 6.5 FL (7.4-10.4); PLATELET COUNT 279 /CUMM (130-400); RBC DISTRIBUTION WIDTH 16.5 % (11.5-14.5); RED BLOOD CELL CT 2.65 /CUMM (4.70-6.10)
--- NOTE | 2017-04-12 09:03 | PN- General Surgery ---
See Addendum Subjective Subjective: No complaints. Tolerating clears. Passing flatus. No bm yet. Out of bed with PT / rolling walker assistance yesterday. Denies dizziness. No shortness of breath. No chest pains. Objective Vital Signs and I&Os Vital Signs Date Time Temp Pulse Resp B/P B/P Pulse O2 O2 Flow FiO2 Mean Ox Delivery Rate 04/12 0646 98.2 80 20 140/84 96 04/11 2201 97.9 88 20 140/90 97 04/11 1948 Room Air 04/11 1548 98.1 85 18 128/74 97 Room Air Intake & Output 04/12 1600 04/12 0800 04/12 0000 04/11 1600 04/11 0800 04/11 0000 Intake Total 800 5316 645 9932 Output Total 750 525 400 Balance 50 1500 360 475 -400 Intake, IV 907 874 0969 Intake, Oral 700 360 Output, Urine 750 525 400 Patient 225 lb Weight Physical Exam: General - alert & oriented x 3. comfortable. no acute distress. Lungs - clear bilaterally. no w/r/r. Cardiac - s1s2. reg. Abdomen - midline dressing removed. incision approximated with shaw. no erythema or exudates. nondistended. active bowel sounds appreciated. rosey- incisional tenderness as expected. Extremities - warm bilaterally. no c/c/e. calves soft and nontender b/l. Current Medications: Current Medications Sig/Carolyn Start time Last Medication Dose Route Stop Time Status Admin Dextrose/Sodium 1,000 ML Q10H 04/11 0915 04/12 Chloride IV 0632 Heparin Sodium 5,000 UNIT Q8 04/09 2200 04/12 (Porcine) SC 0632 Hydromorphone HCl 1 MG Q2-3 HRS NEEDED.. 04/09 1445 AC 04/11 IV 1708 Ondansetron HCl 4 MG .STK-MED ONE 04/11 1041 DC PO 04/11 1042 Ondansetron HCl 4 MG Q6P PRN 04/09 1445 IV Potassium Chloride 20 MEQ Q8H 04/09 1330 DC 04/11 Dextrose/Sodium 1,000 ML IV 0409 Chloride Results Last 48 Hours of Labs: Laboratory Tests 04/12 04/11 0757 0825 Chemistry Sodium (137 - 145 mmol/L) 140 145 Potassium (3.5 - 5.1 mmol/L) 3.9 4.4 Chloride (98 - 107 mmol/L) 109 H 113 H Carbon Dioxide (22 - 30 mmol/L) 25 26 Anion Gap (5 - 16) 6 6 BUN (9 - 20 mg/dL) 12 15 Creatinine (0.7 - 1.2 mg/dL) 0.7 0.8 Estimated GFR (>60 ml/min) > 60 > 60 BUN/Creatinine Ratio (7 - 25 %) 17.1 18.8 Hematology CBC w Diff Pending NO MAN DIFF REQ WBC (4.8 - 10.8 /CUMM) Pending 8.1 RBC (4.70 - 6.10 /CUMM) Pending 2.65 L Hgb (14.0 - 18.0 G/DL) Pending 7.7 L Hct (42 - 52 %) Pending 24.1 L MCV (80.0 - 94.0 FL) Pending 90.7 MCH (27.0 - 31.0 PG) Pending 29.0 RDW (11.5 - 14.5 %) Pending 16.5 H Plt Count (130 - 400 /CUMM) Pending 293 MPV (7.4 - 10.4 FL) Pending 6.4 L Gran % (42.2 - 75.2 %) 80.7 H Lymphocytes % (20.5 - 51.1 %) 9.9 L Monocytes % (1.7 - 9.3 %) 8.2 Eosinophils % (0 - 5 %) 1.0 Basophils % (0.0 - 2.0 %) 0.2 Absolute Granulocytes (1.4 - 6.5 /CUMM) 6.6 H Absolute Lymphocytes (1.2 - 3.4 /CUMM) 0.8 L Absolute Monocytes (0.10 - 0.60 /CUMM) 0.7 H Absolute Eosinophils (0.0 - 0.7 /CUMM) 0.1 Absolute Basophils (0.0 - 0.2 /CUMM) 0 PUBS MCHC (33.0 - 37.0 G/DL) Pending 31.9 L Assessment/Plan Assessment/Plan This is a 77 y/o male who is POD #3 of an exploratory laparotomy w/ enterotomy of gallstone ileus Tolerating clears. d/c ivf Passing flatus. Awaiting further bowel function to advance diet Pain controlled Out of bed with rolling walker and supervision hep sc - dvt ppx f/u labs dressing removed will d/w (covering Barraza) Core Measures/Miscellaneous Venous Thromboembolism VTE Risk Factors: Surgery VTE Contraindications: No Contraindications VTE Diagnosis: No VTE Type: NONE VTE Confirmed by (Test): NONE Beta Jayne Is Beta Jayne a Home Med? No Antibiotics Is Patient on Antibiotics? No
[2017-04-12 14:29] VITALS: BP 130/72
--- NOTE | 2017-04-12 18:58 | NUR ---
NURSING NOTE; PT DAUGHTER BIRGIT WOULD LIKE TO BE CALLED TOMORROW AND UPSATED ON PT POC, PHONE NUMBER IS [phone], WILL PASS ON TO ONCOMING RN
[2017-04-12 22:13] VITALS: BP 110/86
--- NOTE | 2017-04-13 07:57 | PN- Student ---
NOE KILPATRICK 04/13/17 0743: Subjective Subjective: Pt is a 77 y/o male who is POD #4 of an exploratory laporotomy w/ enterotomy of gallstone ileus who is doing well with some minor complaints of pain of a 2/10 around his umbilical region. + flatus, but no bowel movement. + ambulation. Denies any N/V/dizziness. Is tolerating clear diet and wishes to advance. ROS Neuro: Denies any headaches. Respiratory: Denies any SOB. Cardiac: Denies any CP. GI: Denies any N/V, states minor pain around incision site & around umbilical region w/ movement. : Voiding w/o difficulty in urinal. Denies any urgency, burning, or irritation. MSK: Has been ambulating around the room w/ walker. Objective Objective: Vital Signs Date Time Temp Pulse Resp B/P B/P Pulse O2 O2 Flow FiO2 Mean Ox Delivery Rate 04/12 2213 97.9 86 20 110/86 95 Room Air 04/12 1429 98.3 93 20 130/72 94 Room Air General: Alert & oriented x3. Appropriate mood & affect. Respiratory: CABL. No wheezes, rhales, or ronchi. No accessory muscle use. Cardiac: S1S2. Normal rate, regular rhythm. No murmurs, rubs, or gallops. No signs of edema in LE. GI: Abdomen is soft, nondistended, mildly tender in umbillical region to deep palpation. + BS in all 4 quadrants. Incision is not covered by a bandage, and is clean and intact, minor erythema surrounding shaw. MSK: Calf soft, nontender BL. Stocking compression devices are applied. Assessment/Plan Assessment: This is a 77 y/o male who is POD #4 of an exploratory laparotomy w/ enterotomy of gallstone ileus who is doing well with minor pain around umbilical region that is being managed. Plan: - Continue pain regimen. - Possible advancement of diet as tolerated to softs. - Heparin SC & SCD's DVT prophylaxis. - Will discuss w/ attending. MANSOOR PEREA 04/13/17 1132: Addendum Addendum Agree with pa student assessment. Discussed diet regimen with Dr. Vuong. Will advance to regular diet. Discharge pending bowel movement.
[2017-04-13 14:07] VITALS: BP 118/60
--- NOTE | 2017-04-13 15:28 | PN- General Surgery ---
Surgical Brief Attending Note Brief Attending Note: Doing well VSS afebrile, flatus but still no BM, advance diet OOB
[2017-04-13 23:06] VITALS: BP 130/90
[2017-04-14 06:47] VITALS: BP 154/84
[2017-04-14] MEDS ORDERED: PERCOCET 5-3251 EACH PO (07:27)
--- NOTE | 2017-04-14 07:34 | Patient Discharge Instructions ---
Discharge Instructions General Discharge Information You were seen/treated for: Gallstone Ileus/ Small bowel obstruction You had these procedures: Exploratory laparotomy, Gallstone removal via enterotomy Watch for these problems: fever>101, inability to pass gas/bm, inability to tolerate food/drink, redness/ drainage from incision, worsening pain Other wound care: You may shower. Do not soak wounds- no tub baths or swimming. Diet Continue normal diet: Yes Activity Activity Self Limited: Yes (activity as tolerated) Acute Coronary Syndrome Inclusion Criteria At DC or during hospital stay patient has or had the following: ACS DIAGNOSIS No Discharge Core Measures Meds if any: Prescribed or Continued at Discharge Meds if any: NOT Prescribed or Continued at Discharge Congestive Heart Failure Inclusion Criteria At DC or during hospital stay patient has or had the following: CHF DIAGNOSIS No Discharge Core Measures Meds if any: Prescribed or Continued at Discharge Meds if any: NOT Prescribed or Continued at Discharge Cerebrovascular accident Inclusion Criteria At DC or during hospital stay patient has or had the following: CVA/TIA Diagnosis No Discharge Core Measures Meds if any: Prescribed or Continued at Discharge Meds if any: NOT Prescribed or Continued at Discharge Venous thromboembolism Inclusion Criteria VTE Diagnosis No VTE Type NONE VTE Confirmed by (Test) NONE Discharge Core Measures - Per Current guidelines, there needs to be overlap - treatment for the first 5 days of Warfarin therapy. - If discharged on Warfarin prior to 5 days of - overlap therapy, the patient will need to be - assessed for post discharge needs including - *Post discharge parental anticoagulation - *Warfarin and/or parental anticoagulation education - *Follow up date to check INR post discharge At least 5 days overlap therapy as Inpatient No Meds if any: Prescribed or Continued at Discharge Note: Overlap Therapy is Warfarin and Anticoagulant Meds if any: NOT Prescribed or Continued at Discharge
--- NOTE | 2017-04-14 09:19 | PN- General Surgery ---
See Addendum Subjective Subjective: no bm or flatus. +oob. wants laxative. [place] reg diet, no n/v. no abd pain. + voids. no cp/sob Objective Vital Signs and I&Os Vital Signs Date Time Temp Pulse Resp B/P B/P Pulse O2 O2 Flow FiO2 Mean Ox Delivery Rate 04/14 0647 98.4 84 20 154/84 96 04/13 2306 98.1 86 20 130/90 97 Room Air 04/13 1407 99.3 60 20 118/60 97 Room Air Intake & Output 04/14 1600 04/14 0800 04/14 0000 04/13 1600 04/13 0800 04/13 0000 Intake Total 800 2040 120 800 Output Total 475 450 600 400 Balance -760 934 0925 -480 400 Intake, IV 0 Intake, Oral 800 2040 120 800 Number 0 Bowel Movements Output, Urine 475 450 600 400 Physical Exam: GEN: NAD CARD: S1S2 RRR PULM: CTAB ABD: incision w shaw, +clip erythema, some dependent skin erythema inferior to incision, soft, min ttp, +bm EXT: calves soft nt bl Results Last 48 Hours of Labs: Laboratory Tests 04/14 0745 Chemistry Sodium Pending Potassium Pending Chloride Pending Carbon Dioxide Pending Anion Gap Pending BUN Pending Creatinine Pending BUN/Creatinine Ratio Pending Hematology CBC w Diff Pending WBC Pending RBC Pending Hgb Pending Hct Pending MCV Pending MCH Pending RDW Pending Plt Count Pending MPV Pending PUBS MCHC Pending Assessment/Plan Assessment/Plan A: POD5 sp ex lap/enterotomy for gallstone ileus, stable, slow return bowel fxn. P: - await bowel fxn - DVT ppx - reg diet as tolerated - prn PO pain meds - OOB, ambulate in hals - fu am labs - dc planning - will dw attending Core Measures/Miscellaneous Venous Thromboembolism VTE Risk Factors: Surgery VTE Contraindications: No Contraindications VTE Diagnosis: No VTE Type: NONE VTE Confirmed by (Test): NONE Beta Jayne Is Beta Jayne a Home Med? No Antibiotics Is Patient on Antibiotics? No
[2017-04-14 09:35] LABS: ABSOLUTE BASOPHIL COUNT 0 /CUMM (0.0-0.2); ABSOLUTE EOSINOPHIL COUNT 0.3 /CUMM (0.0-0.7); ABSOLUTE GRANULOCYTE CT 6.1 /CUMM (1.4-6.5); ABSOLUTE LYMPH COUNT 1.1 /CUMM (1.2-3.4); ABSOLUTE MONOCYTE COUNT 0.6 /CUMM (0.10-0.60); BASOPHIL % 0.2 % (0.0-2.0); EOSINOPHIL % 3.4 % (0-5); GRANULOCYTE % 75.6 % (42.2-75.2); HEMATOCRIT 26.7 % (42-52); MEAN CORPUSCULAR HGB 29.8 PG (27.0-31.0); MEAN CORPUSCULAR HGB CONC 33.2 G/DL (33.0-37.0); MEAN CORPUSCULAR VOLUME 89.9 FL (80.0-94.0); MEAN PLATELET VOLUME 6.9 FL (7.4-10.4); PLATELET COUNT 290 /CUMM (130-400); RBC DISTRIBUTION WIDTH 16.5 % (11.5-14.5); RED BLOOD CELL CT 2.97 /CUMM (4.70-6.10)
--- NOTE | 2017-04-14 12:57 | Surgical Discharge Summary ---
Visit Information Visit Dates Admission Date: 04/09/17 Discharge Date: 04/14/17 History of Present Illness Chief Complaint: abdominal pain Medical History Blood Transfusion Hx: No Neurological: NONE EENT: NONE Cardiovascular: NONE Respiratory: NONE Gastrointestinal: NONE Hepatic: NONE Renal: NONE Musculoskeletal: R HAND FX/SX/HDWE (joint pain) Psychiatric: NONE Endocrine: NONE Blood Disorders: NONE Cancer(s): NONE BLIND EYELETTER/Reproductive: NONE History of MRSA: No History of VRE: No History of CDIFF: No Isolation History: Standard Surgical History Pertinent Surgical History: hip replacement (Left, revision x3), knee replacement (BL), R wrist ORIF many dental extractions, removal Gallstone small bowel Family History Relations & Conditions If Any: FATHER, . Relation not specified for: FHx: colon cancer Psychosocial History Where Do You Live? Home (lives alone) Who Do You Live With? Family Services at Home: None What is Your Primary Language? French ETOH Use: denies use Review of Systems: not assessed at d/c Hospital Course Course Attending Physician: JOSE JONES,BOYD Martinez Primary Care Physician: PATIENT HAS NO PRIMARY CARE DR Hospital Course: Patient admitted for nasogastric decompression and fluid rescusitation. He was taken to the OR for exploration and removal of gallstone bowel obstruction. See OP note. Post op improved and started on a diet POD2. Tolerated diet and discharged POD5. Allergies: Coded Allergies: NO KNOWN ALLERGIES (02/18/16) Significant Procedures: enterotomy with removal of gallstone Disposition Summary Disposition Principal Diagnosis: gallstone ileus Additional Diagnosis: none Discharge Disposition: home or self care Discharge Instructions General Discharge Information Code Status: Full Code Patient's Diet: regular Patient's Activity: no lifting Follow-Up Instructions/Appts: two weeks Medications at Discharge Discharge Medications: Continue taking these medications: Meloxicam (Meloxicam) 7.5 MG TABLET 1 Tablet ORAL DAILY Qty = 30 Start taking the following new medications: Oxycodone HCl/Acetaminophen (Percocet 5-325 MG Tablet) 5 MG-325 MG TABLET 1 Tablet ORAL EVERY 4-6 HOURS as needed for PAIN Qty = 18 No Refills
[2017-04-14 15:15] VITALS: BP 114/62
== END 2017-04-14 18:01 | DRG 345 ==
LOC: ERH 07:33 → ERHI 13:21 → 2NB 13:21 → ENRESERV 15:05 → 2NB 15:39 → ENTRNSPT 18:56 → CMPTRNSPT 19:18 → ENPENDDIS 04-14 13:21 → 2NB 04-14 18:01
PROVIDERS: Nurse Practitioner; Physician Assistant; Physician Assistant Surgical; ADMIT Surgery
PROC: 0DCB0ZZ Extirpation of Matter from Ileum, Open Approach (ICD-10-PCS; principal; 2017-04-09)
DX: K56.3 Gallstone ileus (principal); K82.3 Fistula of gallbladder; E86.0 Dehydration
CPT/HCPCS: 2NSBP; 36415; 74177; 81001; 82436; 93005; 93010; 96374; 96375; 97116-GO; 97161-GP; 97530-GO; C9399; J0131; J1100; J1644; J1885; J2405; J3101; J7042; Q9965; S5012